=== PATIENT | female | born 1995 ===

== ENCOUNTER 2022-06-29 02:01 | Inpatient (IN) | payer OTHER ==
[~2022-06-29] VITALS: Ht 160 cm; Wt 71.7 kg
[2022-06-29] MEDS ORDERED: PRENATAL TABLE1 EAC1 PO (02:37)
== END 2022-07-02 12:41 | disposition home or self-care (01) | DRG 788 ==
LOC: LDR 02:01 → OB/GYN 02:01 → O/R 18:49 → OB/GYN 21:03
PROVIDERS: ADMIT Obstetrics & Gynecology; ATTEND Obstetrics & Gynecology
PROC: 4A1HXCZ Monitoring of Products of Conception, Cardiac Rate, External Approach (ICD-10-PCS; 2022-06-29)
PROC: 10D00Z1 Extraction of Products of Conception, Low, Open Approach (ICD-10-PCS; principal; 2022-06-29 18:15)
DX: O62.1 Secondary uterine inertia (principal); Z3A.39 39 weeks gestation of pregnancy; Z37.0 Single live birth; Z20.822 Contact with and (suspected) exposure to COVID-19

== ENCOUNTER 2022-07-08 11:56 | Emergency (ER) | payer OTHER ==
[~2022-07-08] VITALS: Ht 160 cm; Wt 62.1 kg
[~2022-07-08 11:56] MED LIST: PRENATAL TABLE1 EAC1 PO
[2022-07-08] MEDS ORDERED: LABETALOL HCL100 MG PO (16:27)
[2022-07-08] MEDS ORDERED: KETO10TA2 PO (16:27)
== END 2022-07-08 17:18 ==
LOC: ER 11:56
DX: U07.1 COVID-19 (principal); O14.95 Unspecified pre-eclampsia, complicating the puerperium; Z91.040 Latex allergy status; Z88.8 Allergy status to other drugs, medicaments and biological substances; Z91.018 Allergy to other foods